=== PATIENT | male | born 1950 | race Caucasian/White ===

== ENCOUNTER → 2019-03-23 11:56 | Outpatient (CLI) | payer MEDICARE, BC, SELFPAY ==
[2019-03-23 12:24] LABS: INR 3.5 (0.9-1.3); Prothrombin Time 41.4 SECONDS (10.1-12.7)
== END ==
PROVIDERS: Visit Provider Specialist
DX: Z79.01 Long term (current) use of anticoagulants (principal)
CPT/HCPCS: 36415; 85610